=== PATIENT | female | born 1950 | race Caucasian/White ===

== ENCOUNTER → 2020-08-10 | Outpatient (CLI) | payer MEDICARE | END | disposition home or self-care (01) | LOC: RAH 12:24 | PROVIDERS: ATTEND Internal Medicine Gastroenterology | DX: M85.88 Other specified disorders of bone density and structure, other site (principal); M24.852 Other specific joint derangements of left hip, not elsewhere classified | CPT/HCPCS: 73502 ==

== ENCOUNTER 2022-01-11 10:14 | Emergency (ER) | payer MEDICARE ==
[~2022-01-11] VITALS: Ht 162.6 cm; Wt 55.3 kg
[2022-01-11] MEDS ORDERED: CLINDAMYCIN IVPB 900MG/50ML 50 ML IV SCH (11:30)
[2022-01-11] MEDS ORDERED: VANCOMYCIN 1G VIAL IVPB ONE (11:30)
[2022-01-11 11:40] LABS: BASOPHILS % (AUTO) 0.6 % (0.0-5.0); EOSINOPHILS % (AUTO) 0.4 % (0.0-8.0); HEMATOCRIT 40.6 % (36-48); LYMPHOCYTES % (AUTO) 15.7 % (21.0-51.0); MEAN CORPUSCULAR HGB CONC 32.5 g/dL (32.0-36.0); MEAN CORPUSCULAR VOLUME 95.3 fL (79-99); MONOCYTES % (AUTO) 11.2 % (3.0-13.0); NEUTROPHILS % (AUTO) 71.7 % (40.0-77.0); PLATELET COUNT (AUTO) 179 K/uL (130-400); RED BLOOD CELL COUNT(AUTO) 4.26 MIL/uL (4.00-5.50); RED CELL DISTRIBUTION WIDTH 12.7 % (11.0-15.5); WHITE BLOOD COUNT (AUTO) 5.2 K/uL (4.8-10.8)
[2022-01-11 11:51] LABS: CREATININE 0.7 mg/dL (0.5-1.5); POTASSIUM 3.7 mmol/L (3.5-5.1)
[2022-01-11 11:56] LABS: ALBUMIN 3.7 g/dL (3.5-5.0); TOTAL PROTEIN, SERUM 7.4 g/dL (6.0-8.3)
[2022-01-11] MEDS ORDERED: CLIN-141 PO (14:45)
[2022-01-11 15:40] VITALS: BP 140/68
== END 2022-01-11 15:40 | disposition home or self-care (01) ==
LOC: EDH 10:14
DX: S81.832A Puncture wound without foreign body, left lower leg, initial encounter (principal); W26.8XXA Contact with other sharp object(s), not elsewhere classified, initial encounter; Y93.89 Activity, other specified; Y92.89 Other specified places as the place of occurrence of the external cause; Y99.8 Other external cause status; Z88.0 Allergy status to penicillin
CPT/HCPCS: 99284; 96365; 93971; 96366; 80053; 85025; 36415; J3490